=== PATIENT | male | born 1995 | race Caucasian/White ===

== ENCOUNTER → 2019-01-26 | Outpatient (CLI) | payer OTHER | LOC: COL.RAD 01-13 14:00 | DX: R10.32 Left lower quadrant pain (principal) | CPT/HCPCS: Q9967 ==

== ENCOUNTER → 2020-07-08 | Outpatient (CLI) | payer OTHER | LOC: COL.RAD 06:57 | DX: S62.002A Unspecified fracture of navicular [scaphoid] bone of left wrist, initial encounter for closed fracture (principal); R60.0 Localized edema ==

== ENCOUNTER → 2020-09-09 | Outpatient (CLI) | payer OTHER | LOC: COL.RAD 13:17 | DX: S62.025A Nondisplaced fracture of middle third of navicular [scaphoid] bone of left wrist, initial encounter for closed fracture (principal) ==

== ENCOUNTER → 2021-01-02 | Outpatient (CLI) | payer OTHER | LOC: COL.RAD 10:57 | DX: S62.022D Displaced fracture of middle third of navicular [scaphoid] bone of left wrist, subsequent encounter for fracture with routine healing (principal) ==

== ENCOUNTER → 2021-04-24 | Outpatient (CLI) | payer OTHER | LOC: COL.RAD 12:47 | DX: S62.002K Unspecified fracture of navicular [scaphoid] bone of left wrist, subsequent encounter for fracture with nonunion (principal); S62.022A Displaced fracture of middle third of navicular [scaphoid] bone of left wrist, initial encounter for closed fracture ==

== ENCOUNTER 2021-05-15 20:08 | Emergency (ER) | payer OTHER ==
[~2021-05-15] VITALS: Ht 182.9 cm; Wt 60.5 kg
[2021-05-15 20:11] VITALS: TEMP 98.3
[2021-05-15 20:27] LABS: BASO % 0.4 % (0.0-2.0); EOS # 0.1 K/mm3 (0.0-0.7); EOS % 1.8 % (0.0-4.0); GRAN # 3.4 K/mm3 (1.4-6.5); GRAN % 69.3 % (42.2-75.2); HEMATOCRIT 42.3 % (42.0-52.0); LYMPH % 20.9 % (20.0-51.0); MEAN CELL VOLUME 86 fl (80.0-100.0); MEAN CORPUSCULAR HEMOGLOBIN 31 pg (27-31); MEAN CORPUSCULAR HGB CONC 36 g/dl (33.0-37.0); MONO # 0.4 K/mm3 (0.1-0.6); MONO % 7.4 % (1.7-9.3); PLATELET COUNT 203 K/mm3 (130-400); RED BLOOD COUNT 4.92 M/mm3 (4.20-5.60); REDCELL DISTRIBUTION WIDTH-CV 12.3 % (11.5-14.5)
[2021-05-15 20:44] LABS: ALANINE AMINOTRANSFERASE 21 U/L (0-55); ALBUMIN 5.1 gm/dL (3.5-5.0); ALKALINE PHOSPHATASE 46 U/L (40-150); ANION GAP 14 mmol/L (7-16); AST,SGOT 28 U/L (5-34); BLOOD UREA NITROGEN 16 mg/dL (9-21); CALCIUM 9.2 mg/dL (8.4-10.2); CARBON DIOXIDE 22 mmol/L (22-29); CHLORIDE 102 mmol/L (98-107); CREATININE, serum 1.19 mg/dL (0.72-1.25); GLUCOSE 112 mg/dL (70-99); POTASSIUM 3.6 mmol/L (3.5-4.5); SODIUM 138 mmol/L (136-145); TOTAL PROTEIN 7.8 gm/dL (6.2-8.1)
[2021-05-15 20:54] LABS: TROPONIN-I < 0.010 ng/mL (0.00-0.033)
[2021-05-15 21:22] VITALS: BP 143/83; PULSE 82
== END 2021-05-15 21:22 | disposition home or self-care (01) ==
LOC: COL.ER 20:08
PROVIDERS: Emergency Medicine
DX: R07.89 Other chest pain (principal)